=== PATIENT | female | born 2000 | race African-American/Black ===

== ENCOUNTER 2024-12-31 13:45 | Emergency (ER) | payer OTHER ==
[~2024-12-31] VITALS: Ht 160 cm; Wt 117.3 kg
[2024-12-31 13:52] VITALS: BP 125/65; PULSE 110; RESP 18; TEMP 97.8; O2SAT 99
[2024-12-31] MEDS ORDERED: ALBU18HF12 IH (13:55)
[2024-12-31] MEDS ORDERED: ETON68IM4 SD (13:55)
== END 2024-12-31 15:10 | disposition home or self-care (01) ==
LOC: EMS 13:48
DX: S63.616A Unspecified sprain of right little finger, initial encounter (principal); J45.909 Unspecified asthma, uncomplicated; Z88.0 Allergy status to penicillin; X58.XXXA Exposure to other specified factors, initial encounter; Y93.89 Activity, other specified; Y92.89 Other specified places as the place of occurrence of the external cause; Y99.8 Other external cause status
CPT/HCPCS: 99283